=== PATIENT | male | born 1970 | race African-American/Black ===

== ENCOUNTER 2016-06-22 07:45 | Emergency (ER) | payer OTHER ==
[~2016-06-22] VITALS: Ht 172.7 cm; Wt 110.0 kg
[~2016-06-22 07:45] MED LIST: ALLO100T PO; DIOV80TA4 OR; FENO1TAB76 OR; [UNRECOGNIZED DRUG - CODE] RE
[2016-06-22 07:48] VITALS: BP 184/95; PULSE 88; RESP 16; TEMP 99.1; O2SAT 99
[2016-06-22] MEDS ORDERED: SODIUM CHLOR 0.9% 1000 ML INJ 1,000 ML IV SCH (08:08)
--- NOTE | 2016-06-22 08:10 | PD ---
HPI Chief Complaint: Abdominal Pain Time Seen by Provider: 08:02 Travel History International Travel<30 days: No Contact w/Intl Traveler<30days: No Traveled to known affect area: No History of Present Illness HPI The patient is a 46-year-old Nadia male who presents to the emergency department for abdominal pain. The patient was awakened at 4:25 AM with abdominal pain. Patient states abdominal pain is located in epigastrium and radiates to right upper quadrant and then diffusely over the abdomen. He does complain of a chronic pain under the left rib for the last 6 months which is been chronic but not progressing. The patient denies any nausea, vomiting, diarrhea, or change in bowel habits. The patient's last bowel movement was this morning, normal. The patient denies any history of gallstones or pancreatitis. The patient denies any previous abdominal surgeries. 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 The patient denies any fever, chills, or sweats. Symptoms are moderate without any alleviating or exacerbating factors. PFSH Past Medical History Narrative Medical Hypertension, hyperlipidemia High Cholesterol: Yes Diabetes: Yes Patient Takes Glucophage: No Past Surgical History Narrative Surgical Previous wisdom tooth extraction Other Surgery: Yes (WISDOM TOOTH EXTRACTION) Social History Alcohol Use: Yes (OCCASIONALLY) Tobacco Use: Yes (DIPs) Allergies-Medications (Allergen,Severity, Reaction): Coded Allergies: No Known Allergies (Unverified , 01/10/12) Reported Meds & Prescriptions Reported Meds & Active Scripts Active Reported Fenofibrate 48 Mg Tab 48 Mg PO DAILY Valsartan 80 Mg Tab 80 Mg PO DAILY Review of Systems Except as stated in HPI: all other systems reviewed are Neg General / Constitutional: No: Fever HENT: No: Lightheadedness Cardiovascular: No: Chest Pain or Discomfort Respiratory: No: Shortness of Breath Gastrointestinal: Positive: Abdominal Pain, No: Nausea, Vomiting, Diarrhea Genitourinary: No: Dysuria Neurologic: No: Dizziness Physical Exam Narrative GENERAL: Awake, alert, pleasant 46-year-old male who appears his stated age and is in no acute respiratory distress. SKIN: Focused skin assessment warm/dry. HEAD: Atraumatic. Normocephalic. EYES: Pupils equal and round. No scleral icterus. No injection or drainage. ENT: No nasal bleeding or discharge. Mucous membranes pink and moist. NECK: Trachea midline. No JVD. CARDIOVASCULAR: Regular rate and rhythm. No murmur appreciated. RESPIRATORY: No accessory muscle use. Clear to auscultation. Breath sounds equal bilaterally. GASTROINTESTINAL: Abdomen soft, tender palpation epigastrium and right upper quadrant. No rebound tenderness, guarding, rigidity. Negative McBurney's. MUSCULOSKELETAL: No obvious deformities. No clubbing. No cyanosis. No edema. NEUROLOGICAL: Awake and alert. No obvious cranial nerve deficits. Motor grossly within normal limits. Normal speech. PSYCHIATRIC: Appropriate mood and affect; insight and judgment normal. Data Data Last Documented VS Vital Signs Date Time Temp Pulse Resp B/P Pulse Ox O2 Delivery O2 Flow Rate FiO2 06/22/16 10:01 76 16 190/92 95 06/22/16 08:19 Room Air 06/22/16 07:48 99.1 Orders Complete Blood Count With Diff (06/22/16 08:08) Comprehensive Metabolic Panel (06/22/16 08:08) Lipase (06/22/16 08:08) Urinalysis - C+S If Indicated (06/22/16 08:08) Ct Abd/Pel W/O Iv Contrast (06/22/16 08:08) Iv Access Insert/Monitor (06/22/16 08:08) Ecg Monitoring (06/22/16 08:08) Oximetry (06/22/16 08:08) Ondansetron Inj (Zofran Inj) (06/22/16 08:15) Sodium Chlor 0.9% 1000 Ml Inj (Ns 1000 M (06/22/16 08:08) Sodium Chloride 0.9% Flush (Ns Flush) (06/22/16 08:15) Ketorolac Inj (Toradol Inj) (06/22/16 08:15) Triglycerides (06/22/16 10:16) Labs Laboratory Tests Test 06/22/16 06/22/16 08:15 10:35 White Blood Count 11.7 TH/MM3 Red Blood Count 4.58 MIL/MM3 Hemoglobin 12.9 GM/DL Hematocrit 38.6 % Mean Corpuscular Volume 84.3 FL Mean Corpuscular Hemoglobin 28.2 PG Mean Corpuscular Hemoglobin 33.4 % Concent Red Cell Distribution Width 13.6 % Platelet Count 280 TH/MM3 Mean Platelet Volume 9.2 FL Neutrophils (%) (Auto) 62.3 % Lymphocytes (%) (Auto) 31.1 % Monocytes (%) (Auto) 5.1 % Eosinophils (%) (Auto) 1.0 % Basophils (%) (Auto) 0.5 % Neutrophils # (Auto) 7.3 TH/MM3 Lymphocytes # (Auto) 3.7 TH/MM3 Monocytes # (Auto) 0.6 TH/MM3 Eosinophils # (Auto) 0.1 TH/MM3 Basophils # (Auto) 0.1 TH/MM3 CBC Comment DIFF FINAL Differential Comment Hematology Comments Urine Color LIGHT-YELLOW Urine Turbidity CLEAR Urine pH 6.5 Urine Specific [place] 1.012 Urine Protein 100 mg/dL Urine Glucose (UA) NEG mg/dL Urine Ketones NEG mg/dL Urine Occult Blood TRACE Urine Nitrite NEG Urine Bilirubin NEG Urine Urobilinogen LESS THAN 2.0 MG/DL Urine Leukocyte Esterase NEG Urine RBC 2 /hpf Urine WBC LESS THAN 1 /hpf Urine Mucus FEW /lpf Microscopic Urinalysis Comment CULT NOT INDICATED Sodium Level 126 MEQ/L Potassium Level 5.5 MEQ/L Chloride Level 96 MEQ/L Carbon Dioxide Level 22.6 MEQ/L Anion Gap 7 MEQ/L Blood Urea Nitrogen 11 MG/DL Creatinine 1.50 MG/DL Estimat Glomerular Filtration 61 ML/MIN Rate Random Glucose 269 MG/DL Calcium Level 8.6 MG/DL Total Bilirubin 1.8 MG/DL Aspartate Amino Transf 195 U/L (AST/SGOT) Alanine Aminotransferase 205 U/L (ALT/SGPT) Alkaline Phosphatase 61 U/L Total Protein 9.3 GM/DL Albumin 3.1 GM/DL Lipase 451 U/L Triglycerides Level 7015 MG/DL [facility] Medical Decision Making Medical Screen Exam Complete: Yes Emergency Medical Condition: Yes Medical Record Reviewed: Yes Interpretation(s) Laboratory Tests Test 06/22/16 06/22/16 08:15 10:35 White Blood Count 11.7 TH/MM3 Red Blood Count 4.58 MIL/MM3 Hemoglobin 12.9 GM/DL Hematocrit 38.6 % Mean Corpuscular Volume 84.3 FL Mean Corpuscular Hemoglobin 28.2 PG Mean Corpuscular Hemoglobin 33.4 % Concent Red Cell Distribution Width 13.6 % Platelet Count 280 TH/MM3 Mean Platelet Volume 9.2 FL Neutrophils (%) (Auto) 62.3 % Lymphocytes (%) (Auto) 31.1 % Monocytes (%) (Auto) 5.1 % Eosinophils (%) (Auto) 1.0 % Basophils (%) (Auto) 0.5 % Neutrophils # (Auto) 7.3 TH/MM3 Lymphocytes # (Auto) 3.7 TH/MM3 Monocytes # (Auto) 0.6 TH/MM3 Eosinophils # (Auto) 0.1 TH/MM3 Basophils # (Auto) 0.1 TH/MM3 CBC Comment DIFF FINAL Differential Comment Hematology Comments Urine Color LIGHT-YELLOW Urine Turbidity CLEAR Urine pH 6.5 Urine Specific [place] 1.012 Urine Protein 100 mg/dL Urine Glucose (UA) NEG mg/dL Urine Ketones NEG mg/dL Urine Occult Blood TRACE Urine Nitrite NEG Urine Bilirubin NEG Urine Urobilinogen LESS THAN 2.0 MG/DL Urine Leukocyte Esterase NEG Urine RBC 2 /hpf Urine WBC LESS THAN 1 /hpf Urine Mucus FEW /lpf Microscopic Urinalysis Comment CULT NOT INDICATED Sodium Level 126 MEQ/L Potassium Level 5.5 MEQ/L Chloride Level 96 MEQ/L Carbon Dioxide Level 22.6 MEQ/L Anion Gap 7 MEQ/L Blood Urea Nitrogen 11 MG/DL Creatinine 1.50 MG/DL Estimat Glomerular Filtration 61 ML/MIN Rate Random Glucose 269 MG/DL Calcium Level 8.6 MG/DL Total Bilirubin 1.8 MG/DL Aspartate Amino Transf 195 U/L (AST/SGOT) Alanine Aminotransferase 205 U/L (ALT/SGPT) Alkaline Phosphatase 61 U/L Total Protein 9.3 GM/DL Albumin 3.1 GM/DL Lipase 451 U/L Triglycerides Level 7015 MG/DL Differential Diagnosis Differential diagnosis includes pancreatitis, gastritis, peptic ulcer disease, choledocholithiasis, cholecystitis, biliary colic, diverticulitis, nephrolithiasis. Narrative Course IV was established, labs are drawn and sent, and the patient was placed on cardiac telemetry monitoring and continuous pulse oximetry monitoring. The patient declined morphine, was administered Toradol, Zofran, and IV fluids. CT of the abdomen and pelvis was ordered. CT of the abdomen and pelvis was negative. Patient's lipase was mildly elevated at 451, it was noted to be a lipemic specimen. Therefore, triglycerides were ordered, a elevated greater than 7000. The patient does have a history of hypertriglyceridemia, stopped taking his medications. The patient's LFTs are mildly elevated, they may be lab areas secondary to elevated triglycerides. I do not believe the patient has an obstructive pancreatitis, CT of the abdomen and pelvis was negative. I will place to place him back on Lopid and he is advised to follow-up with his primary physician. Return if symptoms worsen or progress. Diagnosis Primary Impression: Pancreatitis Qualified Code: K85.80 - Other acute pancreatitis, unspecified complication status Additional Impression: Hypertriglyceridemia Patient Instructions: General Instructions Additional Instructions: Please provide the patient a copy of his labs at discharge. Follow-up with her primary physician. Return if symptoms worsen or progress. Med/Other Pt SpecificInfo: Prescription(s) given Scripts Gemfibrozil (Lopid)600 Mg Buz169 Mg PO BIDAC #60 TAB Ref 0 Take 30 minutes prior to breakfast and dinner Prov:Waylon Maynard MD 06/22/16 Disposition: 01 DISCHARGE HOME Condition: Stable Waylon Maynard MD June 22, 2016 08:10
[2016-06-22] MEDS ORDERED: ONDANSETRON HCL 4 MG/2 ML VIAL IVP ONE (08:15)
[2016-06-22] MEDS ORDERED: SODIUM CHLORIDE 0.9% FLUSH 10 ML FLUSH IV FLUSH PRN (08:15)
[2016-06-22] MEDS ORDERED: KETOROLAC TROMETHAMINE 30 MG/ML (IVP) VIAL IVP ONE (08:15)
[2016-06-22] MEDS ORDERED: VALS1TAB64 PO (08:21)
[2016-06-22] MEDS ORDERED: FENO48TA PO (08:21)
--- NOTE | 2016-06-22 08:46 | RADRPT ---
EXAM DATE/TIME: 06/22/2016 08:22 [place] COMPARISON: No previous studies available for comparison. INDICATIONS : Upper abdominal pain since this morning ORAL CONTRAST: No oral contrast ingested. RADIATION DOSE: 15.90 CTDIvol (mGy) MEDICAL HISTORY : Diabetes mellitus type 1. SURGICAL HISTORY : None. ENCOUNTER: Initial ACUITY: 1 day PAIN SCALE: 5/10 LOCATION: Bilateral abdominal TECHNIQUE: Volumetric scanning of the abdomen and pelvis was performed. Using automated exposure control and ad justment of the mA and/or kV according to patient size, radiation dose was kept as low as reasonably achievable to obtain optimal diagnostic quality images. FINDINGS: LOWER LUNGS: The visualized lower lungs are clear. LIVER: Homogeneous density without lesion. The liver is enlarged measuring 23.9 cm in length. There is no di lation of the biliary tree. No calcified gallstones. SPLEEN: Normal size without lesion. PANCREAS: Within normal limits. KIDNEYS: Normal in size and shape. There is no mass, stone, or hydronephrosis. ADRENAL GLANDS: Within normal limits. VASCULAR: There is no aortic aneurysm. There is mild atherosclerotic disease. BOWEL/MESENTERY: The stomach, small bowel, and colon demonstrate no acute abnormality. There is no free intraperitone al air or fluid. Appendix and terminal ileum are normal. ABDOMINAL WALL: Within normal limits. RETROPERITONEUM: There is no lymphadenopathy. BLADDER: No wall thickening or mass. REPRODUCTIVE: Within normal limits. INGUINAL: There is no lymphadenopathy or hernia. MUSCULOSKELETAL: Within normal limits for patient age. CONCLUSION: 1. No acute abnormality is identified within the abdomen or pelvis on this noncontrast examination. 2. Nonacute findings include mild atherosclerotic disease and hepatomegaly. Augie Parrish MD on June 22, 2016 at 8:40 Board Certified Radiologist. This report was verified electronically.
[2016-06-22 08:52] LABS: BLOOD, URINE TRACE (NEG); COMMENT (UR) CULT NOT INDICATED; CULTURE IF INDICATED CULT NOT INDICATED; GLUCOSE,URINE NEG (NEG); KETONE, URINE NEG (NEG); MUCUS URINE FEW /lpf (OCC); NITRITE,URINE NEG (NEG); PH, URINE 6.5 (5.0-8.5); URINE COLOR LIGHT-YELLOW (YELLW/STRAW)
[2016-06-22 09:21] LABS: ALKALINE PHOSPHATASE 61 U/L (45-117); ANION GAP 7 MEQ/L (5-15); BICARBONATE 22.6 MEQ/L (21.0-32.0); CHLORIDE 96 MEQ/L (98-107); GLOMERULAR FILTRATION RATE 61 ML/MIN (>89); SODIUM (NA) 126 MEQ/L (136-145)
[2016-06-22 09:24] LABS: BLOOD UREA NITROGEN 11 MG/DL (7-18); POTASSIUM 5.5 MEQ/L (3.5-5.1)
[2016-06-22 09:28] LABS: AUTOMATED NEUTROPHIL # 7.3 TH/MM3 (1.8-7.7); BASOPHIL # 0.1 TH/MM3 (0-0.2); BASOPHIL % 0.5 % (0.0-2.0); EOSINOPHIL # 0.1 TH/MM3 (0-0.4); HEMATOCRIT 38.6 % (39.0-51.0); HEMO FLAGS DIFF FINAL; LYMPH % 31.1 % (9.0-44.0); LYMPHOCYTE # 3.7 TH/MM3 (1.0-4.8); MEAN CELL VOLUME 84.3 FL (80.0-100.0); MEAN CORPUSCULAR HEMOGLOBIN 28.2 PG (27.0-34.0); MEAN CORPUSCULAR HGB CONC 33.4 % (32.0-36.0); MONO % 5.1 % (0.0-8.0); NEUT % 62.3 % (16.0-70.0); PLATELET COUNT 280 TH/MM3 (150-450); RED BLOOD COUNT 4.58 MIL/MM3 (4.50-5.90); RED CELL DISTRIBUTION WIDTH 13.6 % (11.6-17.2); WHITE BLOOD COUNT 11.7 TH/MM3 (4.0-11.0)
[2016-06-22 10:01] VITALS: BP 190/92; PULSE 76; RESP 16; O2SAT 95
[2016-06-22 10:15] LABS: ALT (GPT) 205 U/L (12-78)
[2016-06-22 10:40] LABS: TOTAL BILIRUBIN ADULT 1.8 MG/DL (0.2-1.0)
[2016-06-22 10:49] LABS: AST (GOT) 195 U/L (15-37)
[2016-06-22] MEDS ORDERED: GEMF600 PO (11:51)
== END 2016-06-22 12:17 | disposition home or self-care (01) ==
LOC: NEPE 07:45
DX: K85.80 Other acute pancreatitis without necrosis or infection (principal); E78.1 Pure hyperglyceridemia
CPT/HCPCS: 74176; 80053; 81001; 83690; 84478; 85025; 96361; 96374; 96375; 99284; J1885; J2405; J7030

== ENCOUNTER 2016-09-26 12:48 | Day surgery (SDC) | payer OTHER ==
[~2016-09-26] VITALS: Ht 172.7 cm; Wt 104.0 kg
[~2016-09-26 12:48] MED LIST changes: -ALLO100T PO; -DIOV80TA4 OR; -FENO1TAB76 OR; +FENO48TA PO; +GEMF600 PO; +VALS1TAB64 PO; -[UNRECOGNIZED DRUG - CODE] RE
[2016-09-26] MEDS ORDERED: NS 1000P @30 MLS/HR (KVO) IV SCH (13:30)
[2016-09-26] MEDS ORDERED: ASPI81CH CHEW (13:49)
[2016-09-26] MEDS ORDERED: FENO145T2 PO (13:49)
[2016-09-26] MEDS ORDERED: METF500T PO (13:49)
[2016-09-26] MEDS ORDERED: AMLO10TA2 PO (13:49)
[2016-09-26] MEDS ORDERED: MAGN400C PO (13:49)
[2016-09-26 13:50] LABS: AUTOMATED NEUTROPHIL # 7.1 TH/MM3 (1.8-7.7); BASOPHIL # 0.1 TH/MM3 (0-0.2); BASOPHIL % 0.5 % (0.0-2.0); EOSINOPHIL # 0.2 TH/MM3 (0-0.4); EOSINOPHIL % 1.4 % (0.0-4.0); HEMATOCRIT 38.6 % (39.0-51.0); HEMO FLAGS DIFF FINAL; LYMPH % 28.7 % (9.0-44.0); LYMPHOCYTE # 3.1 TH/MM3 (1.0-4.8); MEAN CELL VOLUME 83.8 FL (80.0-100.0); MEAN CORPUSCULAR HEMOGLOBIN 28.2 PG (27.0-34.0); MEAN CORPUSCULAR HGB CONC 33.6 % (32.0-36.0); MONO % 4.7 % (0.0-8.0); NEUT % 64.7 % (16.0-70.0); PLATELET COUNT 280 TH/MM3 (150-450); RED BLOOD COUNT 4.61 MIL/MM3 (4.50-5.90); RED CELL DISTRIBUTION WIDTH 14.1 % (11.6-17.2)
[2016-09-26 13:52] VITALS: BP 145/83; PULSE 83; RESP 17; TEMP 97.9; O2SAT 95
[2016-09-26 14:00] LABS: APTT (PATIENT) 25.9 SEC (24.3-30.1); PROTHROMBIN TIME - PATIENT 10.9 SEC (9.8-11.6)
[2016-09-26 14:02] LABS: BICARBONATE 23.9 MEQ/L (21.0-32.0); POTASSIUM 3.9 MEQ/L (3.5-5.1)
[2016-09-26] MEDS ORDERED: IOHEXOL 350 MG/ML 50 ML BTL (for Cath Lab) OTHER ONE (14:45)
[2016-09-26] MEDS ORDERED: NITROGLYCERIN INJ 5 ML ONE (15:01)
[2016-09-26] MEDS ORDERED: MIDAZOLAM HCL 2 MG/2 ML VIAL ONE (15:01)
[2016-09-26] MEDS ORDERED: HEPARIN SODIUM - IV 10,000 UNITS/10 ML VIAL ONE (15:01)
[2016-09-26] MEDS ORDERED: VERAPAMIL HCL 5 MG/2 ML VIAL ONE (15:01)
--- NOTE | 2016-09-26 15:43 | CATHPROC ---
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 LV LV Ventricle Wire insertion Radial (right) Radial Art. Equipment Time Wood Type Cutter Description Size Mfg Part Number Used/Scraped CATHETER, BIFURCATED 15:31 ANGIO-DYNAMICS FR 5 [id number] Used INFUSION Flash NetworksT TRANSDUCER, TRAudiotoniq [id number] 15:08 Apse * Used W/STOCKCOCK *[id number] TIG 4.0 GUIDE CATHETER [id number] 15:19 [employer] FR 6 Used CONVEY *[id number] 534-545T *[id number] 534-518T *[id number] 534-542T *[id number] 15:08 MEDLINE IND[employer] PACK, CCL CUSTOM * Used *[id number] 15:08 Vaioni PACER PEN, SKIN DUAL W/ RULER * Used *[id number] BAND, RADIAL COMPRESSION TR [id number] 15:33 US PREVENTIVE MEDICINE MEDICAL 29CM Used LARGE 29 *[id number] BAND, RADIAL COMPRESSION TR [id number] 15:39 US PREVENTIVE MEDICINE MEDICAL 29CM Used LARGE 29 *[id number] 15:08 US PREVENTIVE MEDICINE MEDICAL SHEATH, FR6.5 PRELUDE 11CM FR 6.5 038ACT Used *[id number] 15:08 US PREVENTIVE MEDIC[employer] MEDICAL WIRE, 3MMJ .035 180CM 180CM Used *[id number] 15:24 US PREVENTIVE MEDICINE MEDICAL WIRE, EXCHANGE 260CM 3MMJ 260CM Used *[id number] 15:30 US PREVENTIVE MEDICINE MEDICAL WIRE, EXCHANGE 260CM 3MMJ 260CM Used *[id number] 15:08 NAMIC MANIFOLD, 4 PORT * Used *[id number] 15:08 [employer]COMED OMNIPAQUE, 350 MG, 150ML 150ML [id number] Used [id number] 15:08 [facility] BLANKET,WARM AIR CCL * Used *[id number] SHEATH, FR6 TRANSRADIAL [id number] 15:19 [email or web address] FR 6 Used SLENDER 10CM *[id number] History: Current Medications Medication Dosage/Unit Route Frequency Last Date/Time Taken ASA NORVASC Glucophage History: Allergies Allergy Reaction No Known Allergies Tramadol Morphine History: Risk Factors Family History of Hypertension Dyslipidemia Previous CO Previous Heart Failure Premature CAD Yes Yes Yes No No Prior Valve Prior PCI Prior CABG Surgery No No No Cerebrovascular Peripheral Artery On Dialysis Diabetes Diabetes Therapy Disease Disease No No No Yes Oral History: Symptoms/Diagnosis Selection Items Chest pain History: Stress Tests Stress or Imaging Studies Performed Yes Standard Exercise Stress Stress Test Result Test Yes Indeterminant Stress Echo No Stress Test SPECT Yes Stress Test CMR No Cardiac CTA Coronary Calcium Score No No History: Other Current Smoker No Medication Medication Total Dose (Bolus/Oral) Medication Total Dosage/Unit 1% XYLOCAINE 20 mL RADIAL COCKTAIL 5 mL (Bolus) VERSED 2 mg Medications (Bolus/Oral) Medication Time Given Dosage/Unit Administered By Reason VERSED 09/26/2016 3:10:25 PM 2 mg KeyshaBridgett alasnn 2 mg VERSED given in lab by Reggie Chopra in Right Groin via Peripheral IV. 1% XYLOCAINE 09/26/2016 3:12:45 PM 20 mL Bridgett Choprann 20 mL 1% XYLOCAINE given in lab by Reggie Chopra in Right Wrist via Subcutaneous. Ntg 200mcg Verapamil 2.5mg Heparin RADIAL COCKTAIL 09/26/2016 3:16:20 PM 5 mL (Bolus) Keysha, Reggie 2500U 5 mL (Bolus) RADIAL COCKTAIL given in lab by Reggie Chopra via Radial. Using [Solution Name]. Reason: Ntg 200mcg Verapamil 2.5mg Heparin 2500U. Medication (Drip) Medication Time Given Dosage/Unit Concentration/Unit Diluent (ml) Solution IV Solutions 09/26/2016 3:11:24 PM 0 mL (IV) 500 NaCl .9 Patient arrived on IV Solutions in Left Antecubital via Peripheral IV. Pump/Drip Flow = 20 ml/hr usin g NaCl .9. Initial Case Assessment Cardiovascular HR Rhythm NIBP 76 reg 126/70 Edema Present Skin color Skin None Normal Warm Circulatory - Right Pulses Dorsalis Pedis Femoral 2 2 Scale (0,1,2,3,4,d) Circulatory - Left Pulses Dorsalis Pedis Femoral 2 2 Scale (0,1,2,3,4,d) Circulatory - Lower Extremities Color Lower Right Color Lower Left Normal Normal Neurological State Oriented to time-place- Alert Moves all extremities person Respiration - General Respiration Rate SpO2 (%) O2 (lpm) (B/min) 16 97 0 Final Case Assessment Cardiovascular HR Rhythm NIBP 75 REG 133/64 Edema Present Skin color Skin None Normal Warm Circulatory - Right Pulses Dorsalis Pedis Femoral 2 2 Scale (0,1,2,3,4,d) Circulatory - Left Pulses Dorsalis Pedis Femoral 2 2 Scale (0,1,2,3,4,d) Circulatory - Lower Extremities Color Lower Right Color Lower Left Normal Normal Neurological State Oriented to time-place- Alert Moves all extremities person Respiration - General Respiration Rate SpO2 (%) (B/min) 20 97 Chronological Log Time Study Chronological Log 14:45:55 Patient arrived via Bed. 14:46:00 Patient Name, D.O.B, / Armband Verified By R.N. 14:47:40 Consent signed by the physician and the patient and verified by the Maintenance Mechanic [employer] staff. 14:47:40 Pre-op and post- op instructions given; patient acknowledges understanding of instructions. 14:53:17 Verbal Stimulation=2 Physical Stimulation=2 Airway=2 Respiration=2 TOTAL=8. (0=absent, 1=li mited, 2=present) 14:53:27 Allens test performed on the right radial and ulnar artery. 14:53:29 Patient has been NPO for More than 6Hrs. 14:53:31 Skin Breakdown-NLONE Vitals capture started with the following parameters, Patient=Adult, Interval=5 min, Initial Pr xzfftt=544 mmHg, 14:53:35 Deflation Rate=5 mmHg, Cuff placed on Right Arm 14:54:03 Reference ECG taken 14:54:14 HR=75 bpm, RCEC=305/77 mmhg, SpO2=96.0 %, Resp=16 B/min, Pain=0, Moisés=10, Tripp=2 14:59:11 HR=71 bpm, MCNQ=830/79 mmhg, SpO2=99.0 %, Resp=17 B/min, Pain=0, Moisés=10, Tripp=2 15:04:12 HR=73 bpm, EPZW=121/74 mmhg, SpO2=97.0 %, Resp=17 B/min, Pain=0, Moisés=10, Tripp=2 15:09:13 HR=74 bpm, JODP=746/70 mmhg, SpO2=95.0 %, Resp=16 B/min, Pain=0, Moisés=10, Tripp=2 15:09:53 Pressure channel 1 zeroed. 15:10:25 2 mg VERSED given in lab by Reggie Chopra in Right Groin via Peripheral IV. 15:10:47 MD arrived. 15:11:16 A # 20 IV was noted in the Antecubital (left). Grade = 0 15:11:24 Patient arrived on IV Solutions in Left Antecubital via Peripheral IV. Pump/Drip Flow = 20 ml/hr using NaCl .9. 15:11:38 History and physical on the chart or being dictated. Assessment: Initial Case, HR=76 BPM, Rhythm=reg, CYAQ=485/70 mmhg, Edema=None, Color=Normal, Sk in = Warm Right Pulses: Adonis Ped=2, Femoral=2 Left Pulses: Adonis Ped=2, Femoral=2 15:11:38 Lower Right Extremities: Color=Normal Lower Left Extremities: Color=Normal Neurological: State=Alert, Ox3, JOLLY Respiration: Resp=16 B/min, SpO2=97 %, O2=0 lpm 15:12:07 RIGHT WRIST PREPPED 15:12:08 Bilateral groins prepped with 2% chlorhexidine, and with a 3 min. waiting time. Time Out. Correct patient, correct procedure,correct physician, ,power injector loaded with con trast with surgical team 15:12:15 present. Time Out Concurred by MD, individual staff and DIRECTOR OF ASSESSMENT in procedure 15:12:38 Case Start 15:12:40 Verbal Stimulation=2 Physical Stimulation=2 Airway=2 Respiration=2 TOTAL=8. (0=absent, 1=li mited, 2=present) 15:12:45 20 mL 1% XYLOCAINE given in lab by Reggie Chopra in Right Wrist via Subcutaneous. 15:14:10 HR=80 bpm, ICAU=980/79 mmhg, SpO2=92.0 %, Resp=16 B/min, Pain=0, Moisés=10, Tripp=2 5 mL (Bolus) RADIAL COCKTAIL given in lab by Reggie Chopra via Radial. Using [Solution Name]. Re ason: Ntg 200mcg 15:16:20 Verapamil 2.5mg Heparin 2500U. 15:17:23 Access site was Radial Artery. 15:17:36 A wire was inserted via Radial (right). 15:18:01 A SHEATH, FR6.5 PRELUDE 11CM FR 6.5 was advanced into the Radial (right) using the Percutan eous technique. A TIG 4.0 GUIDE CATHETER CONVEY FR 6 was advanced over a wire. OMNIPAQUE, 350 MG, 150ML 150ML w as used 15:18:11 for injections. 15:19:02 The LCA was injected and visualized at various angles. OMNIPAQUE, 350 MG, 150ML 150ML used . Recorded Pressure: Ao, HR=85, Condition=Condition 1 15:19:10 (Aorta) Ao 96/68/80 15:19:13 HR=86 bpm, MDWX=703/63 mmhg, SpO2=94.0 %, Resp=18 B/min, Pain=0, Moisés=10, Tripp=2 After removing the current catheter a JL 3.5 INFINITI CATHETER FR 5 was advanced over a WIRE, E XCHANGE 260CM 15:22:54 3MMJ 260CM. 15:24:10 HR=77 bpm, LGHE=246/66 mmhg, SpO2=94.0 %, Resp=18 B/min, Pain=0, Moisés=10, Tripp=2 After removing the current catheter a AL 1 INFINITI CATHETER FR 5 was advanced over a WIRE, EXC HANGE 260CM 15:26:20 3MMJ 260CM. 15:29:13 HR=86 bpm, ZCMZ=907/64 mmhg, SpO2=96 %, Resp=20 B/min, Pain=0, Moisés=10, Tripp=2 After removing the current catheter a MPA-2 INFINITI CATHETER FR 5 was advanced over a WIRE, EX CHANGE 260CM 15:30:08 3MMJ 260CM. Recorded Pressure: LV, HR=80, Condition=Condition 1 15:31:02 (Left Ventricle) LV 117/5/18 Recorded Pressure: LV, Ao, HR=77, Condition=Condition 1 15:31:24 (Left Ventricle) LV 107/14/22, (Aorta) Ao 106/63/84 15:31:25 The LV was manually injected with 8 cc's and visualized. OMNIPAQUE, 350 MG, 150ML 150ML use d. 15:32:53 Case End Assessment: Final Case, HR=75 BPM, Rhythm=REG, BNBX=235/64 mmhg, Edema=None, Color=Normal, Ski n = Warm Right Pulses: Adonis Ped=2, Femoral=2 Left Pulses: Adonis Ped=2, Femoral=2 15:32:58 Lower Right Extremities: Color=Normal Lower Left Extremities: Color=Normal Neurological: State=Alert, Ox3, JOLLY Respiration: Resp=20 B/min, SpO2=97 % Radial Compression Device Used. ~VOLUME ML~ mLs of air placed in BAND, RADIAL COMPRESSION TR L ARGE 29 15:33:00 29CM. Affected hand ~O2 SATURATION~ % O2 saturation. 15:33:21 Catheter(s) removed without difficulty 15:33:29 Sterile dressing applied to site 15:33:29 No case complications noted. 15:33:30 Cine recording checked. 15:33:33 Bedside Report will be given. 15:33:35 Contrast Scanned 15:33:39 A Left Heart Cath was performed. 15:33:42 Clinical correlaton risk stratification. 15:34:16 HR=77 bpm, HHAC=714/69 mmhg, SpO2=96.0 %, Resp=19 B/min, Pain=0, Moisés=10, Tripp=2 15:39:13 HR=74 bpm, KHDO=095/72 mmhg, SpO2=93.0 %, Resp=20 B/min, Pain=0, Moisés=10, Tripp=2 End Study - Contrast Media Used In Study Contrast Total Opened (mL) Total Used (mL) Total Wasted (mL) Omnipaque 50 50 0 End Study - Radiation Exposure Fluoro Time (minutes) 6.0 End Study - Patient Disposition Complications Transferred To No Outpatient Bed
[2016-09-26] MEDS ORDERED: MISC INFORMATION XX ONE (15:45)
[2016-09-26] MEDS ORDERED: SODIUM CHLORIDE 0.9% FLUSH 10 ML FLUSH IV FLUSH PRN (15:45)
--- NOTE | 2016-09-26 15:54 | MA ---
cc: WARREN LANE MD, GLENN H. M.D. DATE 09/26/16 PROCEDURE Left heart catheterization, selective coronary angiography, left ventriculography. PROCEDURE NOTE The patient was brought to the cardiac catheterization laboratory in a fasting state after having signed informed consent. The right radial region was prepped and draped as per policy and anesthetized with 1% lidocaine. Arterial access was obtained via the right radial artery and a 6-Armenian sheath placed. Coronary arteriography was performed using a Gaines catheter to visualize the LAD, Amplatz left 1.0 catheter to better visualize the left circumflex, and a Gaines catheter to engage the right coronary. Left ventriculography was done using a multipurpose catheter. There were no apparent immediate complications. A radial artery compression band was applied to his right wrist at the end of the case to achieve good hemostasis. HEMODYNAMIC RESULTS Left ventricle 107 with an end-diastolic pressure of 15. Aorta 106/63 with a mean of 84. There was no significant transvalvular aortic gradient on pullback of the pigtail catheter. CORONARY ARTERIOGRAPHY The left main is a relatively short vessel with no disease. The left anterior descending gives rise to three relatively small diagonals which are free of disease. The LAD is a large vessel wrapping around the apex. No definite disease is seen in the LAD. The left circumflex is a medium size vessel giving rise to a tiny first obtuse marginal, large second and third obtuse marginals. No disease is seen in the left circumflex system. The right coronary artery is a medium-sized dominant vessel with no disease. LEFT VENTRICULOGRAPHY Contrast injection of the left ventricle was done using a hand injection. No definite segmental wall motion abnormalities are seen. Ejection fraction is estimated at 70%. CONCLUSION 1. Angiographically normal coronary arteries. 2. Normal left ventricular function with estimated ejection fraction of 70%. Reggie Chopra MD GHJulius/CECE /3:35 PM /3:42 PM DEXTER
[2016-09-26] MEDS ORDERED: SODIUM CHLORIDE 0.9% FLUSH 10 ML FLUSH IV FLUSH SCH (21:00)
--- NOTE | 2016-09-27 11:15 | EKG ---
Date Performed: 09/26/2016 Time Performed: 13:44:00 PTAGE: 46 years EKG: Sinus rhythm Normal ECG NO PREVIOUS TRACING DOCTOR: Sukhjinder Del Angel Interpretating Date/Time 09/27/2016 11:12:57
== END 2016-09-26 18:30 | disposition home or self-care (01) ==
LOC: HDOC 12:48 → HDIC 12:48 → HDOC 18:30
PROVIDERS: ATTEND Internal Medicine Cardiovascular Disease
DX: R07.9 Chest pain, unspecified (principal); Z01.810 Encounter for preprocedural cardiovascular examination; Z01.818 Encounter for other preprocedural examination
CPT/HCPCS: 80048; 85025; 85610; 85730; 93005; 93458; C1769; C1893; J1644; J2250; Q9967